=== PATIENT | female | born 1950 | race Caucasian/White ===

== ENCOUNTER 2017-08-08 07:58 | Observation (INO) | payer OTHER ==
[~2017-08-08] VITALS: Ht 165.1 cm; Wt 74.7 kg
[~2017-08-08 07:58] MED LIST: DHEA PO; ERGO50000 PO; ESTROGEN/TESTOSTERON; FEXPSEER PO; FLUO10 PO; MULVITA PO; OMEGA 3 PO; THYR60 PO; UBID10 PO; [UNRECOGNIZED DRUG - OTHER] PO; [UNRECOGNIZED DRUG - REMARK]
[2017-08-08] MEDS ORDERED: BUPR100ER PO (08:23)
[2017-08-08] MEDS ORDERED: Crestor40 MG (08:23)
[2017-08-08] MEDS ORDERED: VYVANSE30 MG (08:23)
[2017-08-08] MEDS ORDERED: LEVSOD125 PO (08:23)
[2017-08-08 08:54] LABS: BASOPHILS ABSOLUTE AUTO 0.06 K/mm3 (0.00-0.23); BASOPHILS PERCENT AUTO 1 % (0-2); EOSINOPHILS ABSOLUTE AUTO 0.07 K/mm3 (0.00-0.68); EOSINOPHILS PERCENT AUTO 1 % (0-6); Hematocrit 44.9 % (33.0-51.0); Hemoglobin 14.9 g/dL (11.5-16.0); IMMATURE GRAN ABSOLUTE AUTO 0.02 K/mm3 (0.00-0.10); IMMATURE GRAN PERCENT AUTO 0 % (0-1); LYMPHOCYTES ABSOLUTE AUTO 3.69 K/mm3 (0.84-5.20); LYMPHOCYTES PERCENT AUTO 53 % (21-46); MONOCYTES ABSOLUTE AUTO 0.54 K/mm3 (0.16-1.47); MONOCYTES PERCENT AUTO 8 % (4-13); Mean Corpuscular HGB 30.3 pg (26.0-34.0); Mean Corpuscular HGB Conc 33.2 g/dL (31.5-36.5); Mean Corpuscular Volume 91 fL (80-100); NEUTROPHILS ABSOLUTE AUTO 2.53 K/mm3 (1.96-9.15); NEUTROPHILS PERCENT AUTO 37 % (41-73); Platelet Count 227 K/mm3 (150-400); RDW Coefficient Variation 13.6 % (11.7-14.2); Red Blood Cell Count 4.92 M/mm3 (3.80-5.20); White Blood Cell Count 6.91 K/mm3 (4.00-11.30)
[2017-08-08 09:08] LABS: Alanine Aminotransfer (ALT/SGP 37 U/L (12-78); Albumin, Blood 4.1 g/dL (3.4-5.0); Albumin/Globulin Ratio 1.2 (0.8-1.8); Alk Phos 97 U/L (50-136); Anion Gap 6 mmol/L (6-16); Aspartate Aminotrans (AST/SGOT 25 U/L (12-37); Bilirubin, Total 0.4 mg/dL (0.1-1.0); Blood Urea Nitrogen 17 mg/dL (8-24); Bun/Creatinine Ratio 16.8 (12.0-20.0); CO2, Blood 26 mmol/L (21-32); Calcium, Blood 9.3 mg/dL (8.5-10.1); Chloride, Blood 109 mmol/L (98-108); Creatinine, Blood 1.01 mg/dL (0.40-1.00); Globulin, Blood 3.3 g/dL (2.2-4.0); Glomerular Filtration Rate 58 (60-); Glucose, Blood 115 mg/dL (70-99); Magnesium, Blood 2.1 mg/dL (1.6-2.4); Potassium, Blood 4.1 mmol/L (3.5-5.5); Sodium, Blood 141 mmol/L (136-145); Total Protein, Blood 7.4 g/dL (6.4-8.2); Troponin I <0.015 ng/mL (0.000-0.040)
[2017-08-08 09:11] LABS: Thyroid Stimulating Hormone 0.417 uIU/mL (0.360-4.800)
[2017-08-08 09:12] LABS: Prothrombin Time Results 10.4 Sec (9.7-11.5)
[2017-08-08] MEDS ORDERED: GABA100 PO (15:23)
[2017-08-10] MEDS ORDERED: PANT40 PO (19:11)
[2017-08-10] MEDS ORDERED: ASPI81CH PO (19:11)
== END 2017-08-10 19:25 | disposition home or self-care (01) ==
LOC: ER 07:58 → PCU 07:59
PROVIDERS: Emergency Medicine
DX: I20.0 Unstable angina (principal); E78.5 Hyperlipidemia, unspecified; N18.3 Chronic kidney disease, stage 3 (moderate); E03.9 Hypothyroidism, unspecified; K21.9 Gastro-esophageal reflux disease without esophagitis; F17.200 Nicotine dependence, unspecified, uncomplicated; Z88.0 Allergy status to penicillin; Z79.899 Other long term (current) drug therapy
CPT/HCPCS: 36415; 78452; 80053; 83735; 83880; 84443; 84484; 85025; 85610; 86140; 93005; 93010; 93017; 96360; 96361; 96372; 96374; 99285; A9500; G0378; J0280; J1650; J2060; J2785; J7030

== ENCOUNTER → 2018-02-25 | Outpatient (CLI) | payer OTHER ==
[~2018-02-25] MED LIST changes: +ASPI81CH PO; +BUPR100ER PO; +Crestor40 MG; +GABA100 PO; +LEVSOD125 PO; +PANT40 PO; +VYVANSE30 MG
== END | disposition home or self-care (01) ==
LOC: LAB SHORT 15:35 → LAB 15:35
DX: R30.0 Dysuria (principal)
CPT/HCPCS: 87086

== ENCOUNTER → 2020-05-17 | Outpatient (CLI) | payer OTHER, MEDICARE | END | disposition home or self-care (01) | LOC: LAB SHORT 08:57 → PLD 08:57 | DX: L72.0 Epidermal cyst (principal) | CPT/HCPCS: 88305 ==

== ENCOUNTER → 2020-10-05 | Outpatient (CLI) | payer OTHER, MEDICARE | LOC: PLD 14:12 → LAB SHORT 14:12 | DX: D48.5 Neoplasm of uncertain behavior of skin (principal); L72.0 Epidermal cyst; Z88.0 Allergy status to penicillin | CPT/HCPCS: 88304 ==

== ENCOUNTER 2023-04-03 13:12 | Day surgery (SDC) | payer OTHER, MEDICARE ==
[~2023-04-03] VITALS: Ht 165.1 cm; Wt 71.0 kg
[2023-04-03] MEDS ORDERED: LOSARTAN POTASS25 M2 PO (13:58)
--- NOTE | 2023-04-03 14:01 | NUR ---
04/03/23 1401 Sonali Martínez TETRACAINE ADMINISTERED TO THE R EYE AT 1353, PLEDGET PLACED AT [address] [facility]
[2023-04-03 14:57] VITALS: BP 120/68
--- NOTE | 2023-04-03 15:12 | NUR ---
04/03/23 1512 Ambreen Loredo IV REMOVED WITH NO ISSUES. PT TOLERATED WELL.
== END 2023-04-03 15:16 | disposition home or self-care (01) ==
LOC: ORSCSDS 13:12
PROVIDERS: Ophthalmology
PROC: 08RJ3JZ Replacement of Right Lens with Synthetic Substitute, Percutaneous Approach (ICD-10-PCS; principal; 2023-04-03 14:30)
DX: H25.11 Age-related nuclear cataract, right eye (principal); Z96.1 Presence of intraocular lens; E03.9 Hypothyroidism, unspecified; I10 Essential (primary) hypertension; K21.9 Gastro-esophageal reflux disease without esophagitis; Z79.899 Other long term (current) drug therapy; Z87.891 Personal history of nicotine dependence
CPT/HCPCS: J2250; J3010; J3301; J7040; V2632

== ENCOUNTER 2023-11-28 09:48 | Day surgery (SDC) | payer MEDICARE, BC ==
[~2023-11-28] VITALS: Ht 165.1 cm; Wt 72.7 kg
[~2023-11-28 09:48] MED LIST changes: +ALPR.25 PO; +Balanced Salt Epinephrine Irrigation Solution 500 mL IR SCH; +Crestor40 MG PO; +EUTHYROX125 MCG PO; +LOSARTAN POTASS25 M2 PO; +Lidocaine HCl/Pf 1% 5 ML VIAL XX SCH; +Moxifloxacin HCL 0.5 MG/0.1 ML 0.4MLSYR LEFTEYE SCH; +NS 500 ML IV ONE; +PANT20 PO; +PHENYLEPHRINE\\TROPICAMIDE\\TETRACAINE OPHTHALMIC DILATING SOLN LEFTEYE PRN; +Povidone-Iodine 450 DROP/30 ML Solution LEFTEYE SCH; +Triamcinolone Inj Susp 40 MG / ML 1ML Vial INJ SCH; +Triamcinolone Inj Susp 40 MG / ML 1ML Vial ONE
[2023-11-28] MEDS ORDERED: Vyvanse30 MG (10:22)
[2023-11-28] MEDS ORDERED: NS 500 ML IV ONE (10:38)
[2023-11-28] MEDS ORDERED: Midazolam HCl 1MG / ML 2ML Vial ONE (10:41)
[2023-11-28] MEDS ORDERED: FentaNYL Citrate 50 MCG/ML 2 ML Injection ONE (10:41)
[2023-11-28] MEDS ORDERED: Tetracaine HCl 0.5% Opth Soln 15 ml LEFTEYE ONE (11:10)
[2023-11-28 11:40] VITALS: BP 113/71
== END 2023-11-28 11:43 | disposition home or self-care (01) ==
LOC: ORSCSDS 09:48
PROVIDERS: Ophthalmology
PROC: 08RK3JZ Replacement of Left Lens with Synthetic Substitute, Percutaneous Approach (ICD-10-PCS; principal; 2023-11-28 11:00)
DX: H25.812 Combined forms of age-related cataract, left eye (principal); Z96.1 Presence of intraocular lens; N18.30 Chronic kidney disease, stage 3 unspecified; D63.1 Anemia in chronic kidney disease; E78.00 Pure hypercholesterolemia, unspecified; E07.9 Disorder of thyroid, unspecified; Z79.899 Other long term (current) drug therapy
CPT/HCPCS: J2250; J3010; J3301; J7040; V2632

== ENCOUNTER 2024-05-12 14:04 | Day surgery (SDC) | payer MEDICARE, BC ==
[~2024-05-12] VITALS: Ht 165.1 cm; Wt 72.8 kg
[~2024-05-12 14:04] MED LIST changes: +Atropine Sulfate 0.1 MG/ML 10ML SYR ONE; -Balanced Salt Epinephrine Irrigation Solution 500 mL IR SCH; +Glycopyrrolate 0.2 MG/ML 1MLVIAL ONE; +Lactated Ringer's 1,000 ML IV ONE; +Lidocaine 2% 5 ML SDV ONE; +Lidocaine HCl/Pf 1% 5 ML VIAL ONE; -Lidocaine HCl/Pf 1% 5 ML VIAL XX SCH; -Moxifloxacin HCL 0.5 MG/0.1 ML 0.4MLSYR LEFTEYE SCH; -NS 500 ML IV ONE; +Ondansetron HCl 2 MG / ML 2ML Vial ONE; -PHENYLEPHRINE\\TROPICAMIDE\\TETRACAINE OPHTHALMIC DILATING SOLN LEFTEYE PRN; -Povidone-Iodine 450 DROP/30 ML Solution LEFTEYE SCH; -Triamcinolone Inj Susp 40 MG / ML 1ML Vial INJ SCH; -Triamcinolone Inj Susp 40 MG / ML 1ML Vial ONE; +Vyvanse30 MG; +ePHEDrine Sulfate 50 MG/ML 1ML Injection ONE; +propofoL 50 ML IV ONE
[2024-05-12] MEDS ORDERED: Lactated Ringer's 1,000 ML IV ONE (14:44)
[2024-05-12 15:39] VITALS: BP 123/70
== END 2024-05-12 15:46 | disposition home or self-care (01) ==
LOC: ORSCSDS 14:04
PROVIDERS: Internal Medicine Gastroenterology
PROC: 0DJ08ZZ Inspection of Upper Intestinal Tract, Via Natural or Artificial Opening Endoscopic (ICD-10-PCS; principal; 2024-05-12 15:30)
DX: K21.9 Gastro-esophageal reflux disease without esophagitis (principal); R13.10 Dysphagia, unspecified; M85.80 Other specified disorders of bone density and structure, unspecified site; K58.2 Mixed irritable bowel syndrome; E78.00 Pure hypercholesterolemia, unspecified; N18.30 Chronic kidney disease, stage 3 unspecified; Z87.891 Personal history of nicotine dependence; Z79.899 Other long term (current) drug therapy
CPT/HCPCS: J0461; J2001; J2003; J2405; J2704; J7120